=== PATIENT | male | born 1985 | race African-American/Black ===

== ENCOUNTER 2016-09-26 01:13 | Emergency (ER) | payer MEDICAID, OTHER ==
[~2016-09-26] VITALS: Ht 172.7 cm; Wt 87.0 kg
[~2016-09-26 01:13] MED LIST: BENZ100 PO; MEDR4PAK3 PO; OSEL75 PO; PERC5TAB12 PO
[2016-09-26 01:15] VITALS: BP 137/93; PULSE 86; RESP 16; TEMP 97.7; O2SAT 98
--- NOTE | 2016-09-26 02:27 | PD ---
HPI Chief Complaint: Dizziness Time Seen by Provider: 02:12 Travel History International Travel<30 days: No Contact w/Intl Traveler<30days: No Traveled to known affect area: No History of Present Illness HPI 30-year-old male arrives complaining of dizziness. It's been present for one day's lightheadedness in nature. He tried a nebulizer at home which seemed to help. He said no fever no cough no nausea or palpation. He has a history of asthma. He smokes. Initially e stated he had chest pain and when asked to further specify the quality of the pain he stated that he has dizziness. PFSH Past Medical History Asthma: Yes Respiratory: Yes (ASTHMA) Past Surgical History Surgical History: No Previous Surgery Social History Alcohol Use: No Tobacco Use: Yes (1PPD) Substance Use: Yes (MARIJUANA TODAY) Allergies-Medications (Allergen,Severity, Reaction): Coded Allergies: No Known Allergies (Verified , 09/26/16) Reported Meds & Prescriptions Reported Meds & Active Scripts Active No Active Prescriptions or Reported Medications Review of Systems Except as stated in HPI: all other systems reviewed are Neg Physical Exam Narrative , Speech GENERAL: 30-year-old male asleep in the room and in no distress; speech is consistent with nasal congestion SKIN: Warm and dry. HEAD: Atraumatic. Normocephalic. EYES: Pupils equal and round. No scleral icterus. No injection or drainage. ENT: No nasal bleeding or discharge. Mucous membranes pink and moist. Posterior oropharynx patent. NECK: Trachea midline. No JVD. CARDIOVASCULAR: Regular rate and rhythm. RESPIRATORY: No dyspnea. No accessory muscle use. Occasional wheezing. GASTROINTESTINAL: Abdomen soft, non-tender, nondistended. Hepatic and splenic margins not palpable. MUSCULOSKELETAL: Extremities without clubbing, cyanosis, or edema. No obvious deformities. NEUROLOGICAL: Awake and alert. No obvious cranial nerve deficits. Motor grossly within normal limits. Five out of 5 muscle strength in the arms and legs. Normal speech. PSYCHIATRIC: Appropriate mood and affect; insight and judgment normal. Data Data Last Documented VS Vital Signs Date Time Temp Pulse Resp B/P Pulse Ox O2 Delivery O2 Flow Rate FiO2 09/26/16 01:54 96 Room Air 09/26/16 01:15 97.7 86 16 137/93 Vital signs reviewed Orders Electrocardiogram (09/26/16 02:20) Basic Metabolic Panel (Bmp) (09/26/16 02:20) Ckmb (Isoenzyme) Profile (09/26/16 02:20) Complete Blood Count With Diff (09/26/16 02:20) Magnesium (Mg) (09/26/16 02:20) Troponin I (09/26/16 02:20) Chest, Single Ap (09/26/16 02:20) Ecg Monitoring (09/26/16 02:20) Iv Access Insert/Monitor (09/26/16 02:20) Oximetry (09/26/16 02:20) Oxygen Administration (09/26/16 02:20) Sodium Chloride 0.9% Flush (Ns Flush) (09/26/16 02:30) Sodium Chlor 0.9% 1000 Ml Inj (Ns 1000 M (09/26/16 02:30) Albuterol-Ipratropium Neb (Duoneb Neb) (09/26/16 02:30) CKMB (09/26/16 02:35) CKMB% (09/26/16 02:35) Labs Laboratory Tests Test 09/26/16 02:35 White Blood Count 8.0 TH/MM3 Red Blood Count 4.46 MIL/MM3 Hemoglobin 13.2 GM/DL Hematocrit 38.8 % Mean Corpuscular Volume 87.1 FL Mean Corpuscular Hemoglobin 29.6 PG Mean Corpuscular Hemoglobin 34.0 % Concent Red Cell Distribution Width 13.6 % Platelet Count 312 TH/MM3 Mean Platelet Volume 8.5 FL Neutrophils (%) (Auto) 42.1 % Lymphocytes (%) (Auto) 49.4 % Monocytes (%) (Auto) 6.3 % Eosinophils (%) (Auto) 1.5 % Basophils (%) (Auto) 0.7 % Neutrophils # (Auto) 3.4 TH/MM3 Lymphocytes # (Auto) 3.9 TH/MM3 Monocytes # (Auto) 0.5 TH/MM3 Eosinophils # (Auto) 0.1 TH/MM3 Basophils # (Auto) 0.1 TH/MM3 CBC Comment DIFF FINAL Differential Comment Sodium Level 142 MEQ/L Potassium Level 3.8 MEQ/L Chloride Level 106 MEQ/L Carbon Dioxide Level 29.8 MEQ/L Anion Gap 6 MEQ/L Blood Urea Nitrogen 22 MG/DL Creatinine 0.87 MG/DL Estimat Glomerular Filtration 126 ML/MIN Rate Random Glucose 94 MG/DL Calcium Level 9.0 MG/DL Magnesium Level 2.2 MG/DL Total Creatine Kinase 168 U/L Creatine Kinase MB 0.6 NG/ML Troponin I LESS THAN 0.02 NG/ML MDM Medical Decision Making Medical Screen Exam Complete: Yes Emergency Medical Condition: Yes Medical Record Reviewed: Yes Differential Diagnosis Anemia electrolyte imbalance arrhythmia asthma Narrative Course CBC & BMP Diagram 09/26/16 02:35 Troponin I less than 0.02 Last 24 hours Impressions Chest X-Ray 09/26/16 0220 Signed Impressions: Service Date/Time: Wednesday, September 26, 2016 02:31 - CONCLUSION: No acute cardiopulmonary abnormality is identified. Marky Mansfield MD Patient has rested throughout his ER stay. He reports improvement after duo nebs. We'll provide him with an albuterol inhaler here. Presentation is considered a combination of inflammatory airway disease and mild clinical dehydration. Patient advised to drink more water. Return precautions discussed. Diagnosis Primary Impression: Dizziness Additional Impression: Dehydration Referrals: Primary Care Physician 2 days Additional Instructions: You have a choice when it comes to health care, and we are glad that you chose [facility]. Hopefully, we have met your expectations on today's visit. You are welcome to return to [facility] at any time, as we are committed to meeting the health care needs of our community. Med/Other Pt SpecificInfo: Prescription(s) given Scripts Albuterol 8.5 GM Inh (Proair Hfa 8.5 GM Inh)90 Mcg/Act Aer2 Puff INH Q4-6H PRN ( SHORTNESS OF BREATH) #1 INHALER Ref 0 108 mcg/actuation Prov:Maikel Patricio MD 09/26/16 Disposition: 01 DISCHARGE HOME Condition: Stable Maikel Patricio MD Sep 26, 2016 02:27
[2016-09-26] MEDS ORDERED: RESP: ALBUTEROL 2.5 MG/IPRATROPIUM 0.5 MG NEB (SCH) INH ONE (02:30)
[2016-09-26] MEDS ORDERED: SODIUM CHLOR 0.9% 1000 ML INJ 1,000 ML IV ONE (02:30)
[2016-09-26] MEDS ORDERED: SODIUM CHLORIDE 0.9% FLUSH 10 ML FLUSH IVF PRN (02:30)
--- NOTE | 2016-09-26 02:50 | RADRPT ---
EXAM DATE/TIME: 09/26/2016 02:31 [facility] COMPARISON: CHEST SINGLE AP, February 12, 2015, 6:19. INDICATIONS : Shortness of breath. MEDICAL HISTORY : None. SURGICAL HISTORY : None. ENCOUNTER: Initial ACUITY: 1 day PAIN SCORE: 0/10 LOCATION: Bilateral chest FINDINGS: Portable AP view of the chest demonstrates a normal-sized cardiac silhouette. No effusion, consolidat ion, or pneumothorax is visualized. The bones and soft tissues demonstrate no acute abnormality. CONCLUSION: No acute cardiopulmonary abnormality is identified. Marky Mansfield MD on September 26, 2016 at 2:48 Board Certified Radiologist. This report was verified electronically.
[2016-09-26 03:06] LABS: AUTOMATED NEUTROPHIL # 3.4 TH/MM3 (1.8-7.7); BASOPHIL # 0.1 TH/MM3 (0-0.2); BASOPHIL % 0.7 % (0.0-2.0); EOSINOPHIL # 0.1 TH/MM3 (0-0.4); EOSINOPHIL % 1.5 % (0.0-4.0); HEMATOCRIT 38.8 % (39.0-51.0); HEMO FLAGS DIFF FINAL; LYMPH % 49.4 % (9.0-44.0); LYMPHOCYTE # 3.9 TH/MM3 (1.0-4.8); MEAN CELL VOLUME 87.1 FL (80.0-100.0); MEAN CORPUSCULAR HEMOGLOBIN 29.6 PG (27.0-34.0); MONO % 6.3 % (0.0-8.0); NEUT % 42.1 % (16.0-70.0); PLATELET COUNT 312 TH/MM3 (150-450); RED BLOOD COUNT 4.46 MIL/MM3 (4.50-5.90); RED CELL DISTRIBUTION WIDTH 13.6 % (11.6-17.2)
[2016-09-26 03:21] LABS: ANION GAP 6 MEQ/L (5-15); BICARBONATE 29.8 MEQ/L (21.0-32.0); BLOOD UREA NITROGEN 22 MG/DL (7-18); CHLORIDE 106 MEQ/L (98-107); CREATINE KINASE 168 U/L (39-308); GLOMERULAR FILTRATION RATE 126 ML/MIN (>89); MAGNESIUM 2.2 MG/DL (1.5-2.5); POTASSIUM 3.8 MEQ/L (3.5-5.1); SODIUM (NA) 142 MEQ/L (136-145)
[2016-09-26 03:36] LABS: CKMB 0.6 NG/ML (0.5-3.6)
[2016-09-26] MEDS ORDERED: ALBUAER3 INH (04:13)
[2016-09-26] MEDS ORDERED: ALBUTEROL SULFATE 90 MCG/ACT HFA 8 GM INHALER INH ONE (04:15)
[2016-09-26] MEDS ORDERED: ALBUTEROL SULFATE 90 MCG/ACT HFA 18 GM INHALER INH ONE (04:30)
[2016-09-26 04:59] VITALS: O2SAT 97
== END 2016-09-26 05:00 | disposition home or self-care (01) ==
LOC: NEPC 01:13
DX: R42 Dizziness and giddiness (principal); E86.0 Dehydration; F17.200 Nicotine dependence, unspecified, uncomplicated; Z87.09 Personal history of other diseases of the respiratory system
CPT/HCPCS: 71010; 80048; 82550; 82552; 83735; 84484; 85025; 94664; 96360; 96361; 99284; J7030

== ENCOUNTER 2016-10-10 06:20 | Observation (INO) | payer MEDICAID ==
[~2016-10-10] VITALS: Ht 172.7 cm; Wt 88.0 kg
[2016-10-10] VITALS (8 sets, daily range): BP systolic 122–136; BP diastolic 80–94; PULSE 65–86; RESP 16–20; TEMP 96.2–98.5; O2SAT 96–100
[~2016-10-10 06:20] MED LIST changes: +ALBUAER3 INH; -BENZ100 PO; -MEDR4PAK3 PO; -OSEL75 PO; -PERC5TAB12 PO
--- NOTE | 2016-10-10 06:41 | PD ---
HPI . Chest pain and shortness of breath Chief Complaint: Respiratory Symptoms Time Seen by Provider: 06:36 Travel History International Travel<30 days: No Contact w/Intl Traveler<30days: No Traveled to known affect area: No History of Present Illness HPI Patient presents complaining with a two-week history of chest pain and shortness of breath. He states that he will dream that he is checking and wake up feeling like his heart is "plummeting." He also feels lightheaded. He states that his symptoms are constant but have waxed and waned. He notes no relieving or exacerbating factors. He describes his symptoms as severe. [facility] Past Medical History Asthma: Yes Diminished Hearing: No Respiratory: Yes (ASTHMA) Influenza Vaccination: No Past Surgical History Surgical History: No Previous Surgery Social History Alcohol Use: No Tobacco Use: Yes (1PPD) Substance Use: Yes (MARIJUANA OCCASIONALLY) Allergies-Medications (Allergen,Severity, Reaction): Coded Allergies: No Known Allergies (Verified , 10/10/16) Reported Meds & Prescriptions Reported Meds & Active Scripts Active Proair Hfa 8.5 GM Inh (Albuterol Sulfate) 90 Mcg/Act Aer 2 Puff INH Q4-6H PRN 108 mcg/actuation Review of Systems Except as stated in HPI: all other systems reviewed are Neg General / Constitutional: No: Fever, Chills HENT: Positive: Lightheadedness Cardiovascular: Positive: Chest Pain or Discomfort Respiratory: Positive: Shortness of Breath, Other (choking sensation) Physical Exam Narrative GENERAL: Awake and alert and in no acute distress. SKIN: Warm and dry. HEAD: Atraumatic. Normocephalic. EYES: Pupils equal and round. Extraocular movements are intact. ENT: No nasal bleeding or discharge. Mucous membranes pink and moist. NECK: Trachea midline. Neck is supple. CARDIOVASCULAR: Regular rate and rhythm. Heart sounds are normal. RESPIRATORY: No accessory muscle use. Full air movement throughout with no wheezing. GASTROINTESTINAL: Abdomen soft, non-tender, nondistended. MUSCULOSKELETAL: No obvious deformities. No edema. NEUROLOGICAL: Awake and alert. No obvious cranial nerve deficits. Motor grossly within normal limits. Normal speech. PSYCHIATRIC: Appropriate mood and affect; insight and judgment normal. Data Data Last Documented VS Vital Signs Date Time Temp Pulse Resp B/P Pulse Ox O2 Delivery O2 Flow Rate FiO2 10/10/16 06:32 82 16 98 Room Air 10/10/16 06:24 97.8 125/94 Orders Complete Blood Count With Diff (10/10/16 06:36) Basic Metabolic Panel (Bmp) (10/10/16 06:36) B-Type Natriuretic Peptide (10/10/16 06:36) D-Dimer (10/10/16 06:36) Ckmb (Isoenzyme) Profile (10/10/16 06:36) Troponin I (10/10/16 06:36) Iv Access Insert/Monitor (10/10/16 06:36) Ecg Monitoring (10/10/16 06:36) Oximetry (10/10/16 06:36) Chest, Single Ap (10/10/16 06:36) Sodium Chloride 0.9% Flush (Ns Flush) (10/10/16 06:45) Aspirin Chew (Aspirin Chew) (10/10/16 06:45) Lorazepam Inj (Ativan Inj) (10/10/16 06:45) MDM Medical Decision Making Medical Screen Exam Complete: Yes Emergency Medical Condition: Yes Medical Record Reviewed: Yes (patient was seen here about 2 weeks ago with similar complaints.) Interpretation(s) EKG shows a normal sinus rhythm with no ST segment elevation or depression. EKG is unchanged from previous. Differential Diagnosis Differential diagnosis of dyspnea includes but is not limited to congestive heart failure, pneumonia, wheezing, pneumothorax, pulmonary embolism Narrative Course Patient presents complaining with chest pain and shortness of breath. He is able to speak in complete sentences without any respiratory difficulty. His lungs are clear. He is not tachypneic or hypoxic. I suspect an element of anxiety. Care will be turned over to the oncoming physician at 7 AM pending his workup. Diagnosis Primary Impression: Dyspnea Qualified Code: R06.00 - Dyspnea, unspecified type Condition: Stable Marilee Gomez MD Oct 10, 2016 06:41
[2016-10-10] MEDS ORDERED: ASPIRIN 81 MG CHEW TAB CHEW ONE (06:45)
[2016-10-10] MEDS ORDERED: LORazepam 2 MG/ML VIAL IV PUSH ONE (06:45)
[2016-10-10] MEDS ORDERED: SODIUM CHLORIDE 0.9% FLUSH 10 ML FLUSH IVF PRN (06:45)
[2016-10-10 06:58] LABS: AUTOMATED NEUTROPHIL # 2.2 TH/MM3 (1.8-7.7); BASOPHIL % 0.5 % (0.0-2.0); EOSINOPHIL # 0.1 TH/MM3 (0-0.4); EOSINOPHIL % 1.7 % (0.0-4.0); HEMATOCRIT 40.9 % (39.0-51.0); HEMO FLAGS DIFF FINAL; LYMPH % 57.7 % (9.0-44.0); LYMPHOCYTE # 3.8 TH/MM3 (1.0-4.8); MEAN CELL VOLUME 86.9 FL (80.0-100.0); MEAN CORPUSCULAR HEMOGLOBIN 28.8 PG (27.0-34.0); MEAN CORPUSCULAR HGB CONC 33.2 % (32.0-36.0); MONO % 6.7 % (0.0-8.0); NEUT % 33.4 % (16.0-70.0); PLATELET COUNT 296 TH/MM3 (150-450); RED BLOOD COUNT 4.71 MIL/MM3 (4.50-5.90); RED CELL DISTRIBUTION WIDTH 13.1 % (11.6-17.2); WHITE BLOOD COUNT 6.6 TH/MM3 (4.0-11.0)
[2016-10-10 07:16] LABS: ANION GAP 8 MEQ/L (5-15); BICARBONATE 28.5 MEQ/L (21.0-32.0); BLOOD UREA NITROGEN 15 MG/DL (7-18); CHLORIDE 104 MEQ/L (98-107); GLOMERULAR FILTRATION RATE 129 ML/MIN (>89); POTASSIUM 3.9 MEQ/L (3.5-5.1); SODIUM (NA) 140 MEQ/L (136-145)
[2016-10-10 07:20] LABS: CREATINE KINASE 140 U/L (39-308)
[2016-10-10 07:32] LABS: CKMB 0.7 NG/ML (0.5-3.6)
--- NOTE | 2016-10-10 07:42 | PD ---
Physical Exam Date Seen by Provider: Oct 10, 2016 Time Seen by Provider: 07:00 Narrative The patient was signed out to me by Dr. Gomez at 7 AM. We are waiting laboratory tests. Patient presents complaining of shortness of breath and dizziness. The patient states that when he sleeping, he wakes up severely short of breath. The patient has no significant medical history other than asthma. Data Data Last Documented VS Vital Signs Date Time Temp Pulse Resp B/P Pulse Ox O2 Delivery O2 Flow Rate FiO2 10/10/16 06:32 82 16 98 Room Air 10/10/16 06:24 97.8 125/94 Orders Complete Blood Count With Diff (10/10/16 06:36) Basic Metabolic Panel (Bmp) (10/10/16 06:36) B-Type Natriuretic Peptide (10/10/16 06:36) D-Dimer (10/10/16 06:36) Ckmb (Isoenzyme) Profile (10/10/16 06:36) Troponin I (10/10/16 06:36) Iv Access Insert/Monitor (10/10/16 06:36) Ecg Monitoring (10/10/16 06:36) Oximetry (10/10/16 06:36) Chest, Single Ap (10/10/16 06:36) Sodium Chloride 0.9% Flush (Ns Flush) (10/10/16 06:45) Aspirin Chew (Aspirin Chew) (10/10/16 06:45) Lorazepam Inj (Ativan Inj) (10/10/16 06:45) CKMB (10/10/16 06:40) CKMB% (10/10/16 06:40) Arterial Blood Gas (Abg) (10/10/16 07:42) Electrocardiogram (10/10/16 06:36) Labs Laboratory Tests Test 10/10/16 06:40 White Blood Count 6.6 TH/MM3 Red Blood Count 4.71 MIL/MM3 Hemoglobin 13.6 GM/DL Hematocrit 40.9 % Mean Corpuscular Volume 86.9 FL Mean Corpuscular Hemoglobin 28.8 PG Mean Corpuscular Hemoglobin 33.2 % Concent Red Cell Distribution Width 13.1 % Platelet Count 296 TH/MM3 Mean Platelet Volume 8.0 FL Neutrophils (%) (Auto) 33.4 % Lymphocytes (%) (Auto) 57.7 % Monocytes (%) (Auto) 6.7 % Eosinophils (%) (Auto) 1.7 % Basophils (%) (Auto) 0.5 % Neutrophils # (Auto) 2.2 TH/MM3 Lymphocytes # (Auto) 3.8 TH/MM3 Monocytes # (Auto) 0.4 TH/MM3 Eosinophils # (Auto) 0.1 TH/MM3 Basophils # (Auto) 0.0 TH/MM3 CBC Comment DIFF FINAL Differential Comment D-Dimer Quantitative (PE/DVT) 0.24 MG/L FEU Sodium Level 140 MEQ/L Potassium Level 3.9 MEQ/L Chloride Level 104 MEQ/L Carbon Dioxide Level 28.5 MEQ/L Anion Gap 8 MEQ/L Blood Urea Nitrogen 15 MG/DL Creatinine 0.85 MG/DL Estimat Glomerular Filtration 129 ML/MIN Rate Random Glucose 95 MG/DL Calcium Level 8.7 MG/DL Total Creatine Kinase 140 U/L Creatine Kinase MB 0.7 NG/ML Troponin I LESS THAN 0.02 NG/ML B-Type Natriuretic Peptide 5 PG/ML MDM Medical Record Reviewed: Yes Supervised Visit with MEGA: No Differential Diagnosis Anxiety versus CHF versus ACS Narrative Course 30-year-old male presents with complaints of dyspnea and dizziness. The patient states it's worse when sleeping. While here in the emergency department and while sleeping, the patient was noted to drop his O2 saturations into the low 80s. Despite placing oxygen on the patient, his saturations were still in the 80s. When the patient has awoken, his saturations go up into the mid 90s. Given this, the patient will need to be admitted under observation. He'll need to be placed on telemetry floor and have continuous O2 sats. I anticipate he will likely need to have CPAP as he is probably suffering from sleep apnea. Diagnosis Primary Impression: Dyspnea Qualified Code: R06.00 - Dyspnea, unspecified type Additional Impression: probable severe sleep apnea Admitting Information Admitting Physician Requests: Observation Condition: Stable Azael Tsai MD Oct 10, 2016 07:42
[2016-10-10 08:09] LABS: BLOOD GAS CARBOXYHEMOGLOBIN 2.7 % (0-4); BLOOD GAS HCO3 28 mmol/L (22-26); BLOOD GAS METHEMOGLOBIN 0.7 % (0-2); BLOOD GAS O2 HGB SATURATION 95 % (90-100); BLOOD GAS OXYGEN CONTENT 18.5 Vol % (12.0-20.0); BLOOD GAS PCO2 47 mmHg (38-42); BLOOD GAS PO2 118 mmHG (61-120); BLOOD GAS TOTAL HGB 13.7 G/DL (12.0-16.0); TEMP CORR TO 98.6
--- NOTE | 2016-10-10 08:09 | RADRPT ---
EXAM DATE/TIME: 10/10/2016 07:34 [facility] COMPARISON: CHEST SINGLE AP, September 26, 2016, 2:31. INDICATIONS : Short of Breath MEDICAL HISTORY : None. SURGICAL HISTORY : None. ENCOUNTER: Initial ACUITY: 1 day PAIN SCORE: 0/10 LOCATION: Bilateral chest FINDINGS: The lungs are clear without infiltrate, nodule, or mass. There is no appreciable pleural effusion fo r technique. Heart and mediastinum are unremarkable. CONCLUSION: No acute cardiopulmonary disease. Adry Moya MD on October 10, 2016 at 8:07 Board Certified Radiologist. This report was verified electronically.
[2016-10-10 08:10] LABS: CRITICAL VALUE NO; DRAW SITE RT BRACHIAL; FIO2 28 %; LITER FLOW 2 L/M; NUMBER OF ARTERIAL PUNCTURES 2; OXYGEN DEVICE NASAL CANNULA; STAT YES
[2016-10-10] MEDS ORDERED: NALOXONE HCL 0.4 MG/ML AMP IV PRN (08:45)
[2016-10-10] MEDS ORDERED: ACETAMINOPHEN 325 MG TAB PO PRN (08:45)
[2016-10-10] MEDS ORDERED: MAGNESIUM HYDROXIDE SUSP 30 ML CUP PO PRN (08:45)
[2016-10-10] MEDS ORDERED: SODIUM CHLORIDE 0.9% FLUSH 10 ML FLUSH IV FLUSH PRN (08:45)
[2016-10-10] MEDS ORDERED: ENOXAPARIN SODIUM 40 MG/0.4 ML SYRINGE SQ SCH (09:00)
[2016-10-10] MEDS ORDERED: SODIUM CHLORIDE 0.9% FLUSH 10 ML FLUSH IV FLUSH SCH (09:00)
--- NOTE | 2016-10-10 14:42 | EKG ---
Date Performed: 10/10/2016 Time Performed: 06:33:58 PTAGE: 30 years EKG: Sinus rhythm Early repolarization Otherwise, within normal limits Compared to previous tracing, early repolarizat ion changes are still present. NORMAL ECG PREVIOUS TRACING : 02/12/2015 13.13 DOCTOR: Melchor Fragoso Interpretating Date/Time 10/10/2016 14:41:04
--- NOTE | 2016-10-10 15:02 | MB ---
cc: MOLLY BARNES DATE OF CONSULTATION: 10/10/2016 REASON FOR CONSULTATION: Sleep disorder breathing obstructive sleep apnea suspect. Bronchial asthma. HISTORY OF PRESENT ILLNESS The patient is a 30-year-old -[place] male with known history of bronchial asthma for many years for which she uses bronchodilator therapy at home on occasion. The patient has smokes a pack of cigarettes a day, he comes to the emergency room with a 2-week history of shortness of breath especially with exertion. The patient was told that he snores very loudly while sleeping. He does wake up gasping for air on occasion, he is very tired and sleepy in the daytime. He has no history of drop attacks, hallucinations or sleep paralysis. PAST MEDICAL HISTORY: His past medical history is that of bronchial asthma. MEDICATIONS ProAir p.r.n. ALLERGIES None known to medication FAMILY HISTORY Noncontributory. SOCIAL HISTORY Smokes a pack of cigarettes a day. He has uses marijuana on occasion. Does not drink any alcohol. No TB or industrial exposure. REVIEW OF SYSTEMS 12-point review of systems as per HPI and past history otherwise negative. PHYSICAL EXAMINATION: VITAL SIGNS: On exam temperature 98, pulse is respirations 16, blood pressure 126/80, oxygen saturation 98% on 2 liters oxygen. HEAD, EYES, EARS, NOSE, AND THROAT: Exam unremarkable. Eyes without icterus. NECK: Without adenopathy or thyroid enlargement. Trachea central. CHEST: A few scattered rhonchi bilaterally. CARDIAC: Cardiac exam PMI distant. S1-S2 audible. No murmur or rub. ABDOMEN: Lax, audible bowel sounds. EXTREMITIES: No clubbing, cyanosis or edema. LABORATORY DATA Chest x-ray No acute abnormality seen. Arterial blood gas pH 7.38, pCO2 47, pO2 118 on 2 liters oxygen nasal cannula. Sodium 140, potassium 3.9, BUN 15, creatinine 0.8, D-dimer 0.24. IMPRESSION 1. Sleep disordered breathing obstructive sleep apnea suspect. 2. Obesity. 3. Bronchial asthma. PLAN The patient has history of bronchial asthma. Bronchodilator therapy on p.r.n. basis has been given however, he needs to check his pulmonary function to assess the severity of his underlying disease. Meanwhile his sleep disordered breathing is quite severe. The patient is a very loud snorer and with excessive sleepiness and tiredness in the daytime. Polysomnographic evaluation as an outpatient would be appropriate as well. Meanwhile we will check his pulmonary function, thyroid function. I do thank you for asking to partake in Mr. Melendez is care. Sincerely Molly Barnes MD WWW/ /2:23 PM /2:29 PM
[2016-10-10] MEDS ORDERED: RESP: ALBUTEROL 2.5 MG/IPRATROPIUM 0.5 MG NEB (PRN) NEB (15:45)
--- NOTE | 2016-10-10 16:08 | HHI.HP ---
. HPI Service [facility] Primary Care Physician No Primary Care Physician Admission Diagnosis Dyspnea, suspected severe sleep apnea Diagnoses: Chief Complaint: Shortness of breath for two weeks Travel History International Travel<30 Days: No Contact w/Intl Traveler <30 Da: No Traveled to Known Affected Are: No History of Present Illness Mr. Melendez is a 30-year-old with a known history of bronchial asthma for many years, as well as current tobacco use, who presents to the ED with complaint of shortness of breath for two weeks. Patient states that the shortness of breath usually occurs with exertion and with all activity. Patient states that the shortness of breath tends to resolve with rest and the use of his inhaler. He does admit to using inhaler once a day. Associated symptoms include dizziness, nausea and lightheadedness which only occurs when the patient feels short of breath and is relieved shortly after resting. Patient does have occasional chest pain always associated with these episodes of dyspnea. Patient denies any cardiovascular disease. Patient understands importance of tobacco cessation. Denies any recent fever, cough, chills or diarrhea. Review of Systems Constitutional: COMPLAINS OF: Fatigue Respiratory: COMPLAINS OF: Snoring, Shortness of breath Cardiovascular: COMPLAINS OF: Chest pain, Dyspnea on Exertion, Orthopnea Except as stated in HPI: all other systems reviewed are Neg Past Family Social History Past Medical History Bronchial asthma Past Surgical History None Reported Medications Reported Meds & Active Scripts Active Proair Hfa 8.5 GM Inh (Albuterol Sulfate) 90 Mcg/Act Aer 2 Puff INH Q4-6H PRN 108 mcg/actuation Allergies: Coded Allergies: No Known Allergies (Verified , 10/10/16) Active Ordered Medications Current Medications Medications (Trade) Dose Ordered Sig/Maren Route Start Time Stop Time Status Last Admin (NS Flush) 2 ml UNSCH PRN IV FLUSH 10/10/16 08:45 (NS Flush) 2 ml BID IV FLUSH 10/10/16 09:00 (Tylenol) 650 mg Q4H PRN PO 10/10/16 08:45 (Milk Of Magnesia Liq) 30 ml Q12H PRN PO 10/10/16 08:45 (Lovenox Inj) 40 mg Q24H SQ 10/10/16 09:00 10/10/16 10:00 (Narcan Inj) 0.4 mg UNSCH PRN IV 10/10/16 08:45 Family History Denies any family medical history of cardiovascular disease, pulmonary disease or blood clots. Social History Patient admits to a smoking history, says he attempting to quit. Denies any alcohol use. Physical Exam Vital Signs Vital Signs Date Time Temp Pulse Resp B/P Pulse Ox O2 Delivery O2 Flow Rate FiO2 10/10/16 11:46 98.5 86 18 126/86 98 10/10/16 10:00 86 16 132/86 100 Nasal Cannula 2 10/10/16 08:03 78 16 135/87 96 Nasal Cannula 2 10/10/16 07:54 98 Nasal Cannula 2.00 10/10/16 06:32 82 16 98 Room Air 10/10/16 06:24 97.8 81 16 125/94 99 Room Air Physical Exam GENERAL: Well-nourished, well-developed patient in NAD. SKIN: Warm and dry. No rash. HEENT: Normocephalic. Atraumatic. Pupils equal and round. Mucous membranes pink and moist. NECK: Supple. Trachea midline. CARDIOVASCULAR: Regular rate and rhythm. S1, S2 noted. No murmur appreciated. RESPIRATORY: No accessory muscle use. CTA. Breath sounds equal bilaterally. GASTROINTESTINAL: Abdomen soft, non-tender, nondistended. Normoactive bowel sounds x4. MUSCULOSKELETAL: No obvious deformities. Extremities without clubbing, cyanosis , or edema. NEUROLOGICAL: Awake and alert. No obvious cranial nerve deficits. Motor grossly within normal limits. 5/5 muscle strength in bilateral upper and lower extremities. Normal speech. PSYCHIATRIC: Appropriate mood and affect; insight and judgment normal. Laboratory Laboratory Tests Test 10/10/16 10/10/16 06:40 07:54 White Blood Count 6.6 Red Blood Count 4.71 Hemoglobin 13.6 Hematocrit 40.9 Mean Corpuscular Volume 86.9 Mean Corpuscular Hemoglobin 28.8 Mean Corpuscular Hemoglobin 33.2 Concent Red Cell Distribution Width 13.1 Platelet Count 296 Mean Platelet Volume 8.0 Neutrophils (%) (Auto) 33.4 Lymphocytes (%) (Auto) 57.7 Monocytes (%) (Auto) 6.7 Eosinophils (%) (Auto) 1.7 Basophils (%) (Auto) 0.5 Neutrophils # (Auto) 2.2 Lymphocytes # (Auto) 3.8 Monocytes # (Auto) 0.4 Eosinophils # (Auto) 0.1 Basophils # (Auto) 0.0 CBC Comment DIFF FINAL Differential Comment D-Dimer Quantitative (PE/DVT) 0.24 Sodium Level 140 Potassium Level 3.9 Chloride Level 104 Carbon Dioxide Level 28.5 Anion Gap 8 Blood Urea Nitrogen 15 Creatinine 0.85 Estimat Glomerular Filtration 129 Rate Random Glucose 95 Calcium Level 8.7 Total Creatine Kinase 140 Creatine Kinase MB 0.7 Troponin I LESS THAN 0.02 B-Type Natriuretic Peptide 5 Blood Gas Puncture Site RT BRACHIAL Blood Gas Patient Temperature 98.6 Blood Gas HCO3 28 Blood Gas Base Excess 3.0 Blood Gas Oxygen Saturation 95 Arterial Blood pH 7.38 Arterial Blood Partial 47 Pressure CO2 Arterial Blood Partial 118 Pressure O2 Arterial Blood Oxygen Content 18.5 Arterial Blood 2.7 Carboxyhemoglobin Arterial Blood Methemoglobin 0.7 Blood Gas Hemoglobin 13.7 Oxygen Delivery Device NASAL CANNULA Blood Gas Liter Flow 2 Blood Gas Inspired Oxygen 28 Result Diagram: 10/10/16 0640 10/10/16 0640 Imaging Last Impressions Chest X-Ray 10/10/16 0636 Signed Impressions: Service Date/Time: Monday, October 10, 2016 07:34 - CONCLUSION: No acute cardiopulmonary disease. Adry Moya MD Assessment and Plan Assessment and Plan Mr. Melendez is a 30-year-old with a known history of bronchial asthma for many years, as well as current tobacco use, who presents to the ED with complaint of shortness of breath for two weeks with associated nausea, lightheadedness and dizziness. Bronchial asthma with associated dizziness, lightheadedness, and nausea likely secondary to shortness of breath: Duonebs PRN. Walk tests performed by respiratory, patient sustained sats at 98%. Atypical chest pain: suspect related to episodes of hypoxia. EKG reviewed, early repolarization, no significant change from 2015. D-dimer 0.24. Troponin WNL. Low suspicion for cardiac etiology. Suspected sleep apnea: Pulmonology consulted, ordered PFTs and recommended outpatient sleep study. Chest x-ray report reviewed, no acute cardiopulmonary disease. Document O2 sat while sleeping. Monitor closely. Continue oxygen to keep sats greater than 92%. Case management consult to arrange home O2 at night , if possible. Tobacco use: Educated on importance of cessation. DVT prophylaxis: Lovenox Written by Jocelyne Fields, acting as scribe for Dr. Patel on 10/10/16 at 16:30. Discussed Condition With Patient Attending Statement This note was transcribed by scribe []. I, Dr. Blank Patel personally performed the history, physical exam, and medical decision making; and confirmed the accuracy of the information in the transcribed note. Authenticated by Dr. Blank Patel on 10/10/16 at 22:22. Jocelyne Fields Oct 10, 2016 16:08 Blank Patel MD Oct 10, 2016 22:22
== END 2016-10-10 21:11 | disposition left against medical advice (07) ==
LOC: NEPE 06:20 → NEDA 07:54 → NEPHCDU 10:13
PROVIDERS: ADMIT Family Medicine; ATTEND Family Medicine
DX: J45.909 Unspecified asthma, uncomplicated (principal); R07.89 Other chest pain; F17.210 Nicotine dependence, cigarettes, uncomplicated; E66.9 Obesity, unspecified; Z68.29 Body mass index [BMI] 29.0-29.9, adult
CPT/HCPCS: 36600; 71010; 80048; 82550; 82552; 82805; 83880; 84443; 84484; 85025; 85379; 93005; 94620; 96374; 99285; G0378; J1650; J2060

== ENCOUNTER 2016-12-23 20:42 | Emergency (ER) | payer MEDICAID ==
[~2016-12-23] VITALS: Ht 180.3 cm; Wt 80.0 kg
[2016-12-23 20:44] VITALS: BP 168/107; PULSE 98; RESP 16; TEMP 99.5; O2SAT 99
--- NOTE | 2016-12-23 21:02 | PD ---
Physical Exam Date Seen by Provider: Dec 23, 2016 Time Seen by Provider: 21:00 Narrative 30 yo male here for tooth pain. Going on for two days. worse today. 10/10 pain. Swollen gums with bad tooth per patient. No fevers. No other complains. Pain in right side. Vitals are stable in triage. Awaiting bed placement. Data Data Last Documented VS Vital Signs Date Time Temp Pulse Resp B/P Pulse Ox O2 Delivery O2 Flow Rate FiO2 12/23/16 20:44 99.5 98 16 168/107 99 Room Air [facility] Medical Record Reviewed: Yes Supervised Visit with MEGA: No Reece Barrientos Dec 23, 2016 21:02
[2016-12-23] MEDS ORDERED: DICL50TA3 PO (21:10)
[2016-12-23] MEDS ORDERED: AMOX500C PO (21:10)
[2016-12-23] MEDS ORDERED: AMOXICILLIN (TRIHYDRATE) 500 MG CAP PO ONE (21:15)
[2016-12-23] MEDS ORDERED: ACETAMINOPHEN/HYDROcodone 325 MG/5 MG TAB PO ONE (21:15)
--- NOTE | 2016-12-23 21:15 | PD ---
HPI Chief Complaint: Oral / Dental Pain or Problem Time Seen by Provider: 21:13 Travel History International Travel<30 days: No Contact w/Intl Traveler<30days: No Traveled to known affect area: No History of Present Illness HPI 30-year-old black male presents emergency Department with complaints of dental pain. He states that he had tooth on his right lower mandible break about a year ago. Now over the past day he has had increasing right jaw pain. He states that it is severe and reports the pain a 10/10. He states this all along his whole jaw with radiation into his ear. He took Motrin 800 and amoxicillin from a girlfriend. He denies any fever or chills. No nausea vomiting. No abdominal pain or urinary symptoms. PFSH Past Medical History Narrative Medical Asthma Asthma: Yes Blood Disorders: No Heart Rhythm Problems: No Cancer: No Cardiovascular Problems: No High Cholesterol: No Chest Pain: Yes Congestive Heart Failure: No COPD: No Diminished Hearing: No Endocrine: No Gastrointestinal Disorders: No Genitourinary: No Hypertension: No Immune Disorder: No Implanted Vascular Access Dvce: No Musculoskeletal: No Neurologic: No Psychiatric: No Reproductive: No Respiratory: Yes Sleep Apnea: No Past Surgical History Surgical History: No Previous Surgery Other Surgery: No Social History Alcohol Use: No Tobacco Use: Yes (1PPD) Sub[facility]: Yes [facility] Allergies-Medications (Allergen,Severity, Reaction): Coded Allergies: No Known Allergies (Verified , 12/23/16) Reported Meds & Prescriptions Reported Meds & Active Scripts Active Diclofenac Sodium DR (Diclofenac Sodium) 50 Mg Tabdr 50 Mg PO TID Amoxicillin 500 Mg Cap 500 Mg PO TID Review of Systems Except as stated in HPI: all other systems reviewed are Neg Physical Exam Narrative GENERAL: Well-developed, well-nourished in no acute distress. Nontoxic appearing. HEAD: Normocephalic, atraumatic. EYES: Pupils equal round and reactive. Extraocular motions intact. No scleral icterus. No injection or drainage. ENT: TMs clear without erythema. The external auditory canals clear. Nose: clear . Posterior pharynx is pink and moist. No tonsillar edema or exudate. Uvula midline. Airway patent. Patient has diffuse peritonsillar disease. He has a fracture of his right lower canine. He has gingival erythema surrounding the tooth but no obvious abscess. NECK: Trachea midline.Supple, nontender, moves head freely. No central bony tenderness or spasm. CARDIOVASCULAR: Regular rate and rhythm without murmurs, gallops, or rubs. RESPIRATORY: Clear to auscultation. Breath sounds equal bilaterally. No wheezes , rales, or rhonchi. GASTROINTESTINAL: Abdomen soft, non-tender, nondistended. No hepato-splenomegaly , or palpable masses. No guarding. EXTREMITIES: No clubbing, cyanosis, or edema. No joint tenderness, effusion, or edema noted. BACK: Nontender without deformity or crepitance. No flank tenderness. Data Data Last Documented VS Vital Signs Date Time Temp Pulse Resp B/P Pulse Ox O2 Delivery O2 Flow Rate FiO2 12/23/16 20:44 99.5 98 16 168/107 99 Room Air Orders Amoxicillin (Trimox) (12/23/16 21:15) Acetamin-Hydrocod 325-5 Mg ([place] 5-325 (12/23/16 21:15) MDM Medical Decision Making Medical Screen Exam Complete: Yes Emergency Medical Condition: Yes Medical Record Reviewed: Yes Differential Diagnosis MDM: Moderate Differential diagnoses: Dental abscess, dental caries, osteitis, cellulitis Narrative Course Patient's given Lortab 5 a grams by mouth and amoxicillin 500 mg by mouth. This is dental caries, dentalgia Diagnosis Primary Impression: Dental caries Additional Impression: Dentalgia Patient Instructions: Narcotic given in the ED, General Instructions Additional Instructions: Rest. Saltwater gargles. [place] oil on cotton balls. Amoxicillin and diclofenac follow-up with a dentist as soon as possible. And return to the ER if any problems. Med/Other Pt SpecificInfo: Prescription(s) given Scripts Diclofenac Sodium DR 50 Mg Tabdr50 Mg PO TID #21 TAB Prov:Darin Cartwright MD 12/23/16 Amoxicillin 500 Mg Vir299 Mg PO TID #30 CAP Prov:Darin Cartwright MD 12/23/16 Disposition: 01 DISCHARGE HOME Condition: Stable Wes Galindo Dec 23, 2016 21:15
== END 2016-12-23 21:25 | disposition home or self-care (01) ==
LOC: NEPK 20:42
DX: K02.9 Dental caries, unspecified (principal); J45.909 Unspecified asthma, uncomplicated; F17.200 Nicotine dependence, unspecified, uncomplicated
CPT/HCPCS: 99284